=== PATIENT | female | born 1955 | race Hispanic/Latino ===

== ENCOUNTER → 2018-01-06 | Outpatient (CLI) | payer OTHER ==
[~2018-01-06] MED LIST: COLACE100 MG PO; LEVAQUIN500 MG PO; LISINOPRIL-HCT1 EACH PO; LOVASTATIN20 MG PO; PANTOPRAZOLE SO40 MG PO; TYLENOL # 31 EA PO; ULTRAM50 MG PO; protonix PO
--- NOTE | 2018-01-12 08:56 | Diagnostic Imaging Report ---
#[id number] - MGSCRBIL #BILATERAL DIGITAL SCREENING MAMMOGRAM WITH CAD: 01/06/2018 CLINICAL: Routine screening. Comparison is made to exams dated: 01/22/2016 mammogram and 05/19/2013 mammogram - [facility]. Current study contains 4 films. The tissue of both breasts is heterogeneously dense. This may lower the sensitivity of mammography. Current study was also evaluated with a Computer Aided Detection (CAD) system. There are benign calcifications in both breasts. There also are benign densities in both breasts. No significant masses, calcifications, or other findings are seen in either breast. There has been no significant interval change. IMPRESSION: BENIGN There is no mammographic evidence of malignancy. A 1 year screening mammogram is recommended. The patient will be notified by letter of the results. Foreign guajardo/luigi:01/11/2018 12:32:26 Materials Supervisor: Liss DO(Oj)(Mary), [facility] letter sent: Compared to Prior B9 Mammogram BI-RADS: 2 Benign
== END ==
LOC: MAMMO 13:44
PROVIDERS: ATTEND Family Medicine
DX: Z12.31 Encounter for screening mammogram for malignant neoplasm of breast (principal)
CPT/HCPCS: 77067

== ENCOUNTER 2019-08-29 19:09 | Inpatient (IN) | payer BC, OTHER ==
[~2019-08-29] VITALS: Ht 162.6 cm; Wt 91.3 kg
--- OUTSIDE RECORDS SUMMARY | 2019-08-29 19:13 | XMS REPORT ---
Author Author [facility] Address Unknown Phone Unavailable Care Team Providers Care Liner Inserter Name Role Phone Ivana GANDHI Unavailable Unavailable Problems This patient has no known problems. Allergies, Adverse Reactions, Alerts This patient has no known allergies or adverse reactions. Medications This patient has no known medications. Results Test Description Test Time Test Comments Text Results Atomic Results Result Comments MAMMOGRAPHY DIGITAL SCR BILAT 2018-01-06 14:16:00 [place] [address] Patient Name: DAISY NOYOLA MR #: [id number] : 1955 Age/Sex: 62/F Req #: [id number] [facility] Physician: Ordered by: SHERRELL GANDHI MD Report #: [id number] Location: MAMMO Room/Bed: Procedure: [id number] MG/MAMMOGRAPHY DIGITAL SCR BILAT Exam Date: 01/06/18 Exam Time: 1350 REPORT STATUS: Signed #[id number] - MGSCRBIL #BILATERAL DIGITAL SCREENING MAMMOGRAM WITH CAD: 01/06/2018 CLINICAL: Routine screening. Comparison is made to exams dated: 01/22/2016 mammogram and 05/19/2013 mammogram - [facility]. Current study contains 4 films. The tissue of both breasts is heterogeneously dense. This may lower the sensitivity of mammography. Current study was also evaluated with a Computer Aided Detection (CAD) system. There are benign calcifications in both breasts. There also are benign densities in both breasts. No significant masses, calcifications, or other findings are seen in either breast. There has been no significant interval change. IMPRESSION: BENIGN There is no mammographic evidence of malignancy. A 1 year screening mammogram is recomme nded. The patient will be notified by letter of the results. Merrick guajardo/coni:01/11/2018 12:32:26 [place] Inspector Repairer: Liss BLEVINS)(Mary), [facility] letter sent: Compared to Prior B9 Mammogram BI-RADS: 2 Benign Dictated By: MERRICK DE LA ROSA DO 1232 Transcribed By: CONI on 01/11/18 1232 COPY TO: SHERRELL GANDHI MD
[2019-08-29] MEDS ORDERED: PANTOPRAZOLE 40 MG 10ML VIAL IV STA (19:33)
[2019-08-29] MEDS ORDERED: ONDANSETRON HCL INJ 2MG/ML 2ML 2 MG/ML VIAL IV STA (19:33)
[2019-08-29] MEDS ORDERED: MORPHINE SULFATE 2 MG/ML SYR 1ML IV STA (19:33)
[2019-08-29 19:42] LABS: BASOPHILS % 0.2 % (0.0-1.0); EOSINOPHILS % 0.3 % (0.0-6.0); HEMATOCRIT 39.2 % (34.2-44.1); HEMOGLOBIN 13.2 g/dL (12.0-16.0); LYMPHOCYTES # (AUTO) 0.9 (1.0-3.2); MEAN CORPUSCULAR HEMOGLOBIN 31.1 pg (28-32); MEAN CORPUSCULAR HGB CONC 33.7 g/dL (31-35); MEAN CORPUSCULAR VOLUME 92.2 fL (81-99); MONOCYTES # (AUTO) 0.5 (0.2-0.8); MONOCYTES % 4.3 % (4.4-11.3); NEUTROPHILS # (AUTO) 9.5 (2.1-6.9); NEUTROPHILS % 86.8 % (38.7-80.0); PLATELET COUNT 207 x10e3/uL (140-360); RED BLOOD COUNT 4.25 x10e6/uL (3.6-5.1); RED CELL DISTRIBUTION WIDTH 13.2 % (11.7-14.4)
[2019-08-29] MEDS ORDERED: SODIUM CHLORIDE 0.9% 1000ML 1,000 ML IV SCH (19:45)
[2019-08-29 19:56] LABS: ALANINE AMINOTRANSFERASE 21 IU/L (0-55); ALBUMIN 4.3 g/dL (3.5-5.0); ALBUMIN/GLOBULIN RATIO 1.4 (0.8-2.0); ALKALINE PHOSPHATASE 93 IU/L (40-150); BLOOD UREA NITROGEN 24 mg/dL (7-26); BUN/CREATININE RATIO 22 (6-25); CALCIUM 9.3 mg/dL (8.4-10.2); CARBON DIOXIDE 25 mmol/L (22-29); CHLORIDE 106 mmol/L (98-107); CREATINE KINASE 148 IU/L (29-168); CREATININE, SERUM 1.09 mg/dL (0.57-1.11); EST GLOMERULAR FILTRATION RATE 51 ML/MIN (60-); GLUCOSE 117 mg/dL (74-118); SODIUM 140 mmol/L (136-145)
[2019-08-29 19:58] LABS: BILIRUBIN,URINE NEGATIVE (NEGATIVE); CLARITY,URINE SL CLOUDY (CLEAR); COLOR,URINE YELLOW (YELLOW); KETONES,URINE NEGATIVE (NEGATIVE); LEUKOCYTE ESTERASE ,URINE NEGATIVE (NEGATIVE); NITRITE,URINE NEGATIVE (NEGATIVE); PROTEIN,URINE DIPSTICK NEGATIVE (NEGATIVE); URINE UROBILINOGEN 0.2 mg/dL (0.2 - 1)
[2019-08-29] MEDS ORDERED: SODIUM CHLORIDE 0.9% 1000ML 1,000 ML IV ONE (20:00)
[2019-08-29 20:10] LABS: AMORPHOUS SEDIMENT,URINE FEW (FEW); BACTERIA,URINE MODERATE /HPF; EPITHELIAL CELLS,URINE MODERATE /LPF; TRANSITIONAL EPI CELLS,URINE FEW; WBC,URINE (MAN) 0-5 /HPF (0-5)
[2019-08-29 20:16] LABS: AMYLASE 69 U/L (25-125); LIPASE 9 U/L (8-78)
[2019-08-29] MEDS ORDERED: IOPAMIDOL 370 MG/ML 200 ML INFUS..BTL INJ ONE (20:29)
[2019-08-29] MEDS ORDERED: SODIUM CHLORIDE 0.9% 50ML 50 ML ONE (20:30)
--- NOTE | 2019-08-29 21:46 | Diagnostic Imaging Report ---
EXAM: CT Abdomen and Pelvis WITH contrast INDICATION: Bloody diarrhea, abdominal pain, nausea vomiting COMPARISON: None. TECHNIQUE: Abdomen and pelvis were scanned utilizing a multidetector helical scanner from the lung base to the pubic symphysis after administration of IV contrast. Coronal and sagittal reformations were obtained. Routine protocol was performed. Scan was performed when during portal venous phase. IV CONTRAST: 100 mL of Isovue 370 ORAL CONTRAST: None COMPLICATIONS: None RADIATION DOSE: Total DLP: 661 mGy*cm Estimated effective dose: (DLP x 0.015 x size factor) mSv CTDIvol has been reviewed. It is below the limits set by the Radiation Protocol Committee (RPC). Dose modulation, iterative reconstruction, and/or weight based adjustment of the mA/kV was utilized to reduce the radiation dose to as low as reasonably achievable. FINDINGS: LINES and TUBES: None. LOWER THORAX: There is bibasilar atelectasis. HEPATOBILIARY: No focal hepatic lesions. No biliary ductal dilation. GALLBLADDER: There are cholecystectomy clips. SPLEEN: No splenomegaly. PANCREAS: No focal masses or ductal dilatation. ADRENALS: No adrenal nodules KIDNEYS/URETERS: Kidneys enhance symmetrically. No hydronephrosis. No cystic or solid mass lesions. No stones. GI TRACT: Mild circumferential distal esophageal wall thickening with fluid within the distal esophageal lumen. Small sliding gastric hiatal hernia. Colonic diverticulosis, worst in the sigmoid colon and there is mild wall thickening and perisigmoid fat stranding. Circumferential wall thickening, mucosal hyperenhancement and some mucosal edema in the mid to distal rectum. No abnormal distention or evidence of bowel obstruction. Appendix is normal. PELVIC ORGANS/BLADDER: Hysterectomy. No adnexal masses. Urinary bladder underdistended with mild perivesicular fat stranding. LYMPH NODES: No lymphadenopathy. VESSELS: Unremarkable. PERITONEUM / RETROPERITONEUM: No free air or fluid. BONES: There are degenerative changes in the spine. SOFT TISSUES: There are fat containing inguinal hernias. Small periumbilical fat-containing hernia. IMPRESSION: 1. Findings of proctitis. An underlying rectal mass is possible. Recommend proctoscopy. 2. Mild sigmoid diverticulitis. 3. Small sliding gastric hernia hernia and distal esophagitis. Fluid in the distal esophageal lumen suggestive of gastroesophageal reflux. 4. Subtle findings which can be seen with urinary bladder cystitis. Signed by: Jose Mejias DO on 08/29/2019 9:43 PM
[2019-08-29] MEDS ORDERED: MORPHINE SULFATE INJ 4 MG/ML INJ 1ML IV PRN (22:15)
[2019-08-29] MEDS: LEVOFLOXACIN 500MG/D5W 100ML 100 ML IV SCH (22:22)
[2019-08-29] MEDS: SODIUM CHLORIDE 0.9% 1000ML 1,000 ML IV SCH (22:22)
[2019-08-29] MEDS ORDERED: LISINOPRIL-HCT1 EAC1 PO (22:50)
[2019-08-29 23:00] VITALS: BP 142/76
[2019-08-29 23:15] VITALS: BP 142/76
[2019-08-30] VITALS (7 sets, daily range): BP systolic 97–143; BP diastolic 63–89
[2019-08-30] MEDS: SODIUM CHLORIDE 0.9% 1000ML 1,000 ML IV SCH ×2 (00:25→12:01)
[2019-08-30] MEDS: METRONIDAZOLE 500MG/NS 100ML 100 ML IV SCH ×4 (00:55→17:39)
[2019-08-30 01:01] LABS: HEMATOCRIT 34.6 % (34.2-44.1); HEMOGLOBIN 11.6 g/dL (12.0-16.0)
[2019-08-30 05:20] LABS: HEMATOCRIT 35.2 % (34.2-44.1); HEMOGLOBIN 11.7 g/dL (12.0-16.0)
[2019-08-30] MEDS ORDERED: TRAMADOL HCL 50 MG TAB PO PRN (07:00)
--- NOTE | 2019-08-30 08:27 | History and Physical ---
CHIEF COMPLAINT: The patient is a 64-year-old lady with a history of hypertension, hyperlipidemia, history of kidney cancer in the past with nephrectomy, was in usual state of health until the patient started with vomiting, diarrhea, and rectal bleeding. HISTORY OF PRESENT ILLNESS: Ms. Tiraod is a 64-year-old lady with a history of hypertension, was in usual state of health until 3 o'clock. In the afternoon, the patient had some onion rings and the patient was feeling better, however, started with abdominal pain in the more left lower quadrant. The patient then started to have intractable nausea and vomiting, could not control it, called the office with the bloody diarrhea. The patient was asked to come to the emergency room and the patient was found to have proctitis and colitis and admitted for the same. The patient's severity of symptoms of abdominal pain of 7/10 and also has bloody stool, which was still continuing. PAST MEDICAL HISTORY: History of renal cancer status post nephrectomy, history of hyperlipidemia, and history of reflux esophagitis. PAST SURGICAL HISTORY: Cholecystectomy, hysterectomy, and nephrectomy. MEDICATIONS: She takes at home are; lisinopril, hydrochlorothiazide, lovastatin 20 mg, and pantoprazole 40 mg daily. ALLERGIES: NO KNOWN DRUG ALLERGIES. SOCIAL HISTORY: No EtOH. No IV drug abuse. . No history of smoking either. FAMILY HISTORY: History of hypertension and hyperlipidemia and also history of cancer in her sister, which is metastatic. REVIEW OF SYSTEMS: Negative for chest pain. No shortness of breath. Positive for nausea. Positive for vomiting. Positive for diarrhea. Positive for rectal bleeding and hematochezia. No hematemesis. Positive for headache. No blurry vision and extreme fatigue at this time. PHYSICAL EXAMINATION: VITAL SIGNS: Temperature is 97.9, pulse of 57, respirations of 20, blood pressure is 122/65, pulse oximetry of 100% on room air. HEENT: Normocephalic, atraumatic. Pupils are reactive. CVS: S1 and S2 normal. Regular rate and rhythm. LUNGS: Clear to auscultation. ABDOMEN: Tender in the left lower quadrant and slight trace edema present. LABORATORY VALUES: Initial white count 10.94, hemoglobin 13.2, hematocrit of 39.2, and platelet count was 207. Chemistry shows sodium 140, potassium 4.0, BUN of 24, creatinine of 1.09, and amylase and lipase within normal limits. Urine showed RBCs and negative for WBCs, moderate amount of bacteria. IMAGING STUDIES: Abdominal CT was done in the ER, which shows finding of proctitis, underlying rectal masses, possible recommended proctoscopy, mild sigmoid diverticulitis, small sliding hiatal hernia, subtle findings of urinary bladder, and cystitis. Microbiology has not been done. ASSESSMENT: Ms. Candida Jon with: 1. Rectal bleeding. 2. Colitis and proctitis. 3. Urinary tract infection. 4. History of hypertension. 5. History of hyperlipidemia. 6. History of reflux esophagitis. PLAN: The patient is currently on Levaquin and Flagyl. Continue the same. A consult with GI has been done. The patient was scheduled for a colonoscopy with Dr. Henrry Ocasio. We will also consult him as required, for right now we will continue IV Levaquin and Flagyl. Restart home medications depending on blood pressure. We will continue to monitor the patient. Further recommendation per clinical course and also restart the Protonix in lieu of intractable nausea. The patient is also on morphine for pain control and 40 mg of Protonix IV daily too. MD IDALMIS Merida/DAVIDL /[id number]
[2019-08-30] MEDS: HYDROCHLOROTHIAZIDE 25 MG TAB PO SCH (08:28)
[2019-08-30] MEDS: LISINOPRIL 20 MG TAB PO SCH (08:28)
[2019-08-30] MEDS ORDERED: PANTOPRAZOLE 40 MG 10ML VIAL IV SCH (09:00)
[2019-08-30] MEDS: ONDANSETRON HCL INJ 2MG/ML 2ML 2 MG/ML VIAL IV PRN (10:17)
[2019-08-30 12:08] LABS: HEMATOCRIT 35.3 % (34.2-44.1); HEMOGLOBIN 11.9 g/dL (12.0-16.0)
[2019-08-30] MEDS: ACETAMINOPHEN 325 MG TAB PO PRN (16:04)
[2019-08-30 18:11] LABS: HEMATOCRIT 36.7 % (34.2-44.1); HEMOGLOBIN 12.2 g/dL (12.0-16.0)
[2019-08-30] MEDS: SIMVASTATIN 20 MG TAB PO SCH (20:40)
[2019-08-30] MEDS: LEVOFLOXACIN 500MG/D5W 100ML 100 ML IV SCH (22:15)
[2019-08-30] MEDS: PANTOPRAZOLE 40 MG 10ML VIAL IV SCH (23:45)
[2019-08-31] VITALS (8 sets, daily range): BP systolic 113–126; BP diastolic 57–77
[2019-08-31] MEDS: METOCLOPRAMIDE HCL 10 MG/2ML VIAL IV SCH ×4 (00:25→17:51)
[2019-08-31] MEDS: METRONIDAZOLE 500MG/NS 100ML 100 ML IV SCH ×4 (00:25→17:51)
[2019-08-31] MEDS: ACETAMINOPHEN 325 MG TAB PO PRN (00:40)
[2019-08-31 01:11] LABS: HEMATOCRIT 37.2 % (34.2-44.1); HEMOGLOBIN 12.3 g/dL (12.0-16.0)
[2019-08-31] MEDS: SODIUM CHLORIDE 0.9% 1000ML 1,000 ML IV SCH ×2 (04:13→15:20)
[2019-08-31] MEDS ORDERED: CITRATE OF MAGNESIA 300ML BOTTLE PO ONE ×2 (05:00→07:00)
[2019-08-31 05:19] LABS: BASOPHILS % 0.4 % (0.0-1.0); EOSINOPHILS # (AUTO) 0.1 (0.0-0.4); EOSINOPHILS % 2.3 % (0.0-6.0); HEMATOCRIT 35.2 % (34.2-44.1); HEMOGLOBIN 11.6 g/dL (12.0-16.0); LYMPHOCYTES # (AUTO) 1.5 (1.0-3.2); LYMPHOCYTES % 26.8 % (18.0-39.1); MEAN CORPUSCULAR HEMOGLOBIN 30.7 pg (28-32); MEAN CORPUSCULAR VOLUME 93.1 fL (81-99); MONOCYTES # (AUTO) 0.4 (0.2-0.8); MONOCYTES % 7.7 % (4.4-11.3); NEUTROPHILS # (AUTO) 3.5 (2.1-6.9); NEUTROPHILS % 62.4 % (38.7-80.0); PLATELET COUNT 164 x10e3/uL (140-360); RED BLOOD COUNT 3.78 x10e6/uL (3.6-5.1); RED CELL DISTRIBUTION WIDTH 13.2 % (11.7-14.4)
[2019-08-31 05:43] LABS: ALANINE AMINOTRANSFERASE 20 IU/L (0-55); ALBUMIN 3.3 g/dL (3.5-5.0); ALBUMIN/GLOBULIN RATIO 1.3 (0.8-2.0); ALKALINE PHOSPHATASE 72 IU/L (40-150); ANION GAP 9.7 mmol/L (8-16); BLOOD UREA NITROGEN 10 mg/dL (7-26); BUN/CREATININE RATIO 11 (6-25); CALCIUM 8.6 mg/dL (8.4-10.2); CARBON DIOXIDE 27 mmol/L (22-29); CHLORIDE 107 mmol/L (98-107); CREATININE, SERUM 0.91 mg/dL (0.57-1.11); EST GLOMERULAR FILTRATION RATE > 60 ML/MIN (60-); GLUCOSE 84 mg/dL (74-118); POTASSIUM 3.7 mmol/L (3.5-5.1); SODIUM 140 mmol/L (136-145)
[2019-08-31] MEDS: ONDANSETRON HCL INJ 2MG/ML 2ML 2 MG/ML VIAL IV PRN (07:41)
[2019-08-31] MEDS: PANTOPRAZOLE 40 MG 10ML VIAL IV SCH ×2 (08:21→21:15)
--- NOTE | 2019-08-31 08:28 | Progress Note ---
DATE: SUBJECTIVE: A 64-year-old lady with a history of renal cancer, status post nephrectomy came in with colitis and rectal bleeding, nausea and vomiting. She is feeling a little better, but continues to have nausea uptitrated her reflux regimen, Reglan has been all added. Diarrhea is better, but still the patient has some rectal bleeding ongoing. Serial H and H have been done and they have been very stable, we will discontinue that at this time. Abdominal pain still present, it is more in the left lower quadrant and the patient continues to get some pain medicine, but less intensity. PHYSICAL EXAMINATION: VITAL SIGNS: Temperature is 96.9 and afebrile, pulse of 66, respirations of 18, blood pressure is 113/58, pulse oximetry of 97% on room air. HEENT: Normocephalic, atraumatic. Pupils are reactive. There is no icterus present. CVS: S1 and S2 normal. Regular rate and rhythm. ABDOMEN: Tender in the left lower quadrant and also on the left upper quadrant and also some suprapubic tenderness. EXTREMITIES: No clubbing, no cyanosis, and no edema. LABORATORY VALUES: Today's white count is 5.6, hemoglobin of 11.6 and hematocrit 35.2. Chemistry shows sodium 140, potassium of 3.7, chloride of 107. Amylase and lipase as mentioned is normal. Stool culture positive. ASSESSMENT: 1. Ms. Danay Tirado with bloody diarrhea, questionable more likely diverticulitis in nature, proctitis has been mentioned on the CT scan and a questionable rectal mass has been also mentioned. 2. Intractable nausea with reflux like symptoms. Augmentation of antireflux regimen has been done by Dr. Hank Barlow. 3. Hyperlipidemia and hypertension. We will continue on her medication. The patient also has a history of status post nephrectomy for renal cell carcinoma. PLAN: At this time, plan would be to continue monitoring her vital signs. Stop her serial H and H. We will continue with being n.p.o. for EGD and colonoscopy. Prep has been done and is being done. We will continue monitoring the patient. Further recommendation, clinical course and pain management is by morphine/tramadol. García Arboleda MD ASJ/MODMadison /[id number]
[2019-08-31] MEDS: HYDROCHLOROTHIAZIDE 25 MG TAB PO SCH (09:00)
[2019-08-31] MEDS: LISINOPRIL 20 MG TAB PO SCH (09:00)
[2019-08-31] MEDS: SIMVASTATIN 20 MG TAB PO SCH (21:15)
[2019-08-31] MEDS ORDERED: BISACODYL 5 MG TAB EC PO SCH ×3 (21:30→22:30)
[2019-08-31] MEDS: LEVOFLOXACIN 500MG/D5W 100ML 100 ML IV SCH (22:15)
[2019-09-01] VITALS (7 sets, daily range): BP systolic 92–145; BP diastolic 50–80
[2019-09-01] MEDS: METRONIDAZOLE 500MG/NS 100ML 100 ML IV SCH ×3 (00:35→12:00)
[2019-09-01] MEDS: METOCLOPRAMIDE HCL 10 MG/2ML VIAL IV SCH ×3 (00:37→12:00)
[2019-09-01] MEDS: SODIUM CHLORIDE 0.9% 1000ML 1,000 ML IV SCH ×2 (01:45→10:13)
[2019-09-01 04:54] LABS: BASOPHILS % 0.3 % (0.0-1.0); EOSINOPHILS # (AUTO) 0.1 (0.0-0.4); EOSINOPHILS % 1.1 % (0.0-6.0); HEMATOCRIT 36.8 % (34.2-44.1); HEMOGLOBIN 12.3 g/dL (12.0-16.0); LYMPHOCYTES # (AUTO) 1.3 (1.0-3.2); MEAN CORPUSCULAR HEMOGLOBIN 30.8 pg (28-32); MEAN CORPUSCULAR HGB CONC 33.4 g/dL (31-35); MONOCYTES # (AUTO) 0.5 (0.2-0.8); MONOCYTES % 8.2 % (4.4-11.3); NEUTROPHILS # (AUTO) 4.5 (2.1-6.9); NEUTROPHILS % 70.1 % (38.7-80.0); PLATELET COUNT 189 x10e3/uL (140-360); RED CELL DISTRIBUTION WIDTH 12.9 % (11.7-14.4)
[2019-09-01] MEDS ORDERED: CITRATE OF MAGNESIA 300ML BOTTLE PO SCH (05:00)
[2019-09-01 05:10] LABS: ANION GAP 11.5 mmol/L (8-16); CALCIUM 8.3 mg/dL (8.4-10.2); CREATININE, SERUM 0.96 mg/dL (0.57-1.11); POTASSIUM 3.5 mmol/L (3.5-5.1)
--- NOTE | 2019-09-01 08:01 | Progress Note ---
DATE: SUBJECTIVE: This patient came in with acute colitis with acute nausea and vomiting, and diarrhea. The patient also had bloody diarrhea. CAT scan shows colitis and also possible inflammatory bowel disease and possible rectosigmoid mass versus tumor. The patient was put on full dose of Reglan for nausea control and also put on Flagyl and Levaquin for infection control and also control of her colitis. Currently, the patient has been cleaned up for colonoscopy and endoscopy. Medicines reviewed. The patient did stop having diarrhea yesterday, which was bloody. No more bloody diarrhea, but nausea is still persistent. No vomiting at this time. Medications reviewed in the hospital. OBJECTIVE: VITAL SIGNS: Temperature is 96.6, pulse of 79, respirations of 18, blood pressure is 92/50 with a pulse oximetry of 98%. HEENT: Normocephalic and atraumatic. Pupils are reactive to light and accommodation. CVS: S1 and S2 normal. ABDOMEN: plaster tender at the left lower quadrant and epigastric area. EXTREMITIES: No clubbing, no cyanosis, no edema. ASSESSMENT: Ms. Candida Jon is a 64-year-old lady, who has, 1. Colitis with response of diarrhea and nausea. 2. Anemia of blood loss. 3. History of hypertension, but with hypertensive episode secondary to volume loss. PLAN: At this time would be to continue monitoring the patient. The patient is scheduled for colonoscopy and endoscopy today. Findings will be reviewed. The patient can be discharged today if colonoscopy and endoscopy findings are benign. Further recommendation per clinical course. We will continue to monitor the patient. MD IDALMIS Merida/MODL /[id number]
[2019-09-01] MEDS: PANTOPRAZOLE 40 MG 10ML VIAL IV SCH (09:00)
[2019-09-01 14:43] LABS: WBC,FECAL (FECAL LACTOFERRIN) NEGATIVE (NEGATIVE)
[2019-09-01] MEDS: LISINOPRIL 20 MG TAB PO SCH (15:00)
[2019-09-01] MEDS: HYDROCHLOROTHIAZIDE 25 MG TAB PO SCH (15:00)
--- NOTE | 2019-09-01 17:08 | Operative Report ---
DATE OF PROCEDURE: 09/01/2019 SURGEON: Hank Barlow MD PROCEDURES: Esophagogastroduodenoscopy with biopsies and colonoscopy with biopsies. INDICATIONS FOR SURGERY: Acid reflux. INDICATIONS FOR COLONOSCOPY: Bloody diarrhea? Rectal mass on CT scan. MEDICATIONS: The patient was done under MAC, please see anesthesiologist's note. PROCEDURE IN DETAIL: With the patient in left lateral decubitus position, a flexible fiberoptic Olympus gastroscope was introduced into the esophagus under direct visualization without any difficulty. There was some patchy erythema noted in distal esophagus. Minute tongues of velvety red mucosa were noted to extend proximally from the GE junction and biopsies were obtained to rule out Menjivar. The scope was then advanced with ease into the stomach traversing a large hiatal hernia approximately 5 cm in size. Mucosa overlying the antrum and the body revealed some patchy erythema and [id number] edema, and biopsies were obtained and sent to stain for H pylori. Pylorus was of normal contour and shape was intubated with ease and the scope was then advanced to the second portion of the duodenum. The scope was then withdrawn slowly. Mucosa overlying the proximal second portion and duodenal bulb appeared to be within normal limits. The scope was then withdrawn back into the stomach and retroflexed and mucosa overlying the fundus appeared to be within normal limits. The scope was then straightened out it was subsequently withdrawn. The patient tolerated the procedure well. IMPRESSION: 1. Rule out Menjivar esophagus. 2. Large hiatal hernia. 3. Gastritis, biopsied, biopsies sent to stain for Helicobacter pylori. PLAN: Follow up histology. Initiate Protonix 40 mg one p.o. q.a.m. a.c. PROCEDURE IN DETAIL: The patient was then turned around after adequate lubrication of the anal canal, a flexible fiberoptic Olympus colonoscope was inserted into the rectum with ease and advanced all the way to the cecum. Mucosa overlying the cecum appeared to be within normal limits. The ileocecal valve was intubated and the scope was advanced into the terminal ileum. Biopsies were obtained. The scope was then withdrawn back into the colon. It was then withdrawn slowly. Mucosa overlying the ascending and the transverse appeared to be within normal limits. Mucosa overlying the left colon revealed some patchy intense erythema and moderate edema, and random biopsies were obtained. Diverticular disease was noted to involve the distal descending and the sigmoid colon. Similar inflammatory changes were noted in the rectum and biopsies were obtained. The scope was then retroflexed into the distal rectum and small internal hemorrhoids were noted, none of which was actively bleeding. The scope was then straightened out, it was subsequently withdrawn. The patient tolerated the procedure well. IMPRESSION: 1. Left-sided colitis, biopsies obtained. 2. Diverticulosis. 3. Proctitis, biopsies obtained. 4. Internal hemorrhoids, none actively bleeding. PLAN: Follow up histology. Follow up stool studies. Hank Barlow MD [facility]/MODL /[id number] cc: García Arboleda MD
[2019-09-01] MEDS ORDERED: GLUCAGON FOR INJ 1 MG VIAL ONE (19:34)
[2019-09-01] MEDS ORDERED: PROPOFOL IV EMULSION 10 MG/ML 50 ML VIAL ONE (19:34)
[2019-09-01] MEDS ORDERED: FENTANYL CITRATE/PF 100MCG/2 ML INJ ONE (19:53)
[2019-09-01] MEDS ORDERED: MIDAZOLAM HCL 2 MG/2 ML VIAL ONE (19:53)
[2019-09-02 14:12] LABS: C DIFFICILE TOXIN A&B AMP PROB NEGATIVE (NEGATIVE)
== END 2019-09-01 17:37 | disposition home or self-care (01) | DRG 385 ==
LOC: ER 19:09 → ERHOLD 22:18 → MED/SURG2 23:01
PROVIDERS: ADMIT Family Medicine; ATTEND Family Medicine
PROC: 0DBB8ZX Excision of Ileum, Via Natural or Artificial Opening Endoscopic, Diagnostic (ICD-10-PCS; 2019-09-01)
PROC: 0DBP8ZX Excision of Rectum, Via Natural or Artificial Opening Endoscopic, Diagnostic (ICD-10-PCS; 2019-09-01)
PROC: 0DBG8ZX Excision of Left Large Intestine, Via Natural or Artificial Opening Endoscopic, Diagnostic (ICD-10-PCS; 2019-09-01)
PROC: 0DB58ZX Excision of Esophagus, Via Natural or Artificial Opening Endoscopic, Diagnostic (ICD-10-PCS; principal; 2019-09-01 11:30)
PROC: 0DB68ZX Excision of Stomach, Via Natural or Artificial Opening Endoscopic, Diagnostic (ICD-10-PCS; 2019-09-01 11:30)
DX: K51.511 Left sided colitis with rectal bleeding (principal); K57.33 Diverticulitis of large intestine without perforation or abscess with bleeding; N39.0 Urinary tract infection, site not specified; D62 Acute posthemorrhagic anemia; K62.89 Other specified diseases of anus and rectum; K21.0 Gastro-esophageal reflux disease with esophagitis; K44.9 Diaphragmatic hernia without obstruction or gangrene; D50.0 Iron deficiency anemia secondary to blood loss (chronic); K29.70 Gastritis, unspecified, without bleeding; K64.8 Other hemorrhoids; E78.5 Hyperlipidemia, unspecified; E78.00 Pure hypercholesterolemia, unspecified; Z82.49 Family history of ischemic heart disease and other diseases of the circulatory system; Z90.49 Acquired absence of other specified parts of digestive tract; Z85.528 Personal history of other malignant neoplasm of kidney; Z90.5 Acquired absence of kidney
CPT/HCPCS: 36415; 43239; 45378; 74177; 80048; 80053; 81001; 82150; 82270; 82550; 82553; 83630; 83690; 83993; 84484; 85014; 85018; 85025; 87045; 87177; 87328; 87493; 93005; 96361; 96374; 99284; J1610; J1956; J2250; J2270; J2405; J2765; J3010; J7030; Q9967

== ENCOUNTER → 2020-02-28 | Outpatient (CLI) | payer MEDICARE ==
[~2020-02-28] MED LIST changes: +LISINOPRIL-HCT1 EAC1 PO
--- NOTE | 2020-02-28 17:28 | Diagnostic Imaging Report ---
EXAM: Renal Ultrasound INDICATION: Chronic kidney disease ^CHRONIC KIDNEY DZ COMPARISON: 08/29/2019 TECHNIQUE: Transverse and longitudinal images of the kidneys and bladder were obtained. FINDINGS: Right Kidney: Length: 10.9 x 5.6 x 4.5 cm Appearance: Normal echogenicity. Collecting system: Questionable mild hydronephrosis Stones: None Cyst/Mass: None Left Kidney: Length: 10.4 x 4.7 x 5.1 cm Appearance: Normal echogenicity. Collecting system: No hydronephrosis Stones: None Cyst/Mass: None Bladder: Normal IMPRESSION: Questionable mild right kidney hydronephrosis. Otherwise, unremarkable renal ultrasound. Signed by: Dr. Ryan Taylor M.D. on 02/28/2020 5:24 PM
== END ==
LOC: US 16:35
PROVIDERS: ATTEND Family Medicine
DX: N18.30 Chronic kidney disease, stage 3 unspecified (principal)
CPT/HCPCS: 76770

== ENCOUNTER → 2020-08-15 | Outpatient (CLI) | payer MEDICARE | LOC: MAMMO 14:29 | PROVIDERS: ATTEND Family Medicine | DX: Z12.31 Encounter for screening mammogram for malignant neoplasm of breast (principal) | CPT/HCPCS: 77067 ==

== ENCOUNTER → 2020-09-03 | Outpatient (CLI) | payer MEDICARE | LOC: US 14:30 | PROVIDERS: ATTEND Family Medicine | DX: Z85.528 Personal history of other malignant neoplasm of kidney (principal) | CPT/HCPCS: 76770 ==

== ENCOUNTER 2021-01-03 15:57 | Emergency (ER) | payer MEDICARE ==
[~2021-01-03] VITALS: Ht 162.6 cm; Wt 93.6 kg
[2021-01-03] MEDS ORDERED: KETOROLAC TROMETHAMINE 30 MG/ML VIAL IV STA (17:10)
[2021-01-03] MEDS ORDERED: SODIUM CHLORIDE 0.9% 1000ML 1,000 ML IV SCH (17:15)
[2021-01-03] MEDS ORDERED: CYCLOBENZAPRINE10 MG PO (18:19)
[2021-01-03] MEDS ORDERED: ACETAMINOPHEN/1 EAC1 PO (18:19)
== END 2021-01-03 18:54 | disposition home or self-care (01) ==
LOC: FSED 16:26
DX: E86.1 Hypovolemia (principal); E86.0 Dehydration; M54.5 Low back pain
CPT/HCPCS: 71046; 80053; 81003; 82553; 84484; 85025; 93005; 99284; J1885

== ENCOUNTER → 2021-01-10 | Outpatient (CLI) | payer MEDICARE ==
[~2021-01-10] MED LIST changes: +ACETAMINOPHEN/1 EAC1 PO; +CYCLOBENZAPRINE10 MG PO
== END ==
LOC: US 13:23
PROVIDERS: ATTEND Family Medicine
DX: C64.2 Malignant neoplasm of left kidney, except renal pelvis (principal)
CPT/HCPCS: 76770

== ENCOUNTER → 2022-07-08 | Outpatient (CLI) | payer MEDICARE | LOC: US 10:37 | PROVIDERS: ATTEND Family Medicine | DX: Z85.528 Personal history of other malignant neoplasm of kidney (principal) | CPT/HCPCS: 76770 ==

== ENCOUNTER → 2022-09-22 | Outpatient (CLI) | payer OTHER | LOC: MAMMO 09:52 | PROVIDERS: ATTEND Family Medicine | DX: Z12.11 Encounter for screening for malignant neoplasm of colon (principal) | CPT/HCPCS: 77067 ==

== ENCOUNTER → 2023-09-28 | Outpatient (REF) | payer OTHER | LOC: MAMMO 12:21 | PROVIDERS: ATTEND Family Medicine | DX: Z12.31 Encounter for screening mammogram for malignant neoplasm of breast (principal); Z13.820 Encounter for screening for osteoporosis | CPT/HCPCS: 77067; 77080 ==

== ENCOUNTER → 2024-09-28 | Outpatient (REF) | payer OTHER | LOC: MAMMO 09:03 | PROVIDERS: ATTEND Family Medicine | DX: Z12.31 Encounter for screening mammogram for malignant neoplasm of breast (principal) | CPT/HCPCS: 77067 ==